=== PATIENT | female | born 1980 | race Asian ===

== ENCOUNTER 2023-10-21 09:27 | Observation (INO) ==
[~2023-10-21 09:27] MED LIST: Naloxone 0.4 mg VIAL 0.4 mg/ml 1 ml VIAL IV PUSH PRN
[2023-10-21] MEDS ORDERED: Scopolamine 1 mg/72hr PATCH ONE (10:41)
[2023-10-21] MEDS ORDERED: oxyCODONE SR 10 mg TAB ONE (10:41)
[2023-10-21] MEDS ORDERED: Ondansetron 4 mg VIAL 2 MG/ML 2 ml VIAL ONE (10:41)
[2023-10-21 10:59] LABS: Hematocrit 36.6 % (35-45); Hemoglobin 12.4 g/dL (11.5-14.3); Mean Corpuscular Hemoglobin 30.7 pg (27-33); Mean Corpuscular Volume 90.4 fL (80-97); Mean Platelet Volume 7.9 fL (7.5-11.2); Platelet Count 338 10^3/uL (150-450); Red Blood Count 4.04 10^6/uL (3.63-4.92); Red Cell Distribution Width 12.5 % (12-17); White Blood Count 2.2 10^3/uL (3.8-11.8)
[2023-10-21] MEDS ORDERED: Naloxone 0.4 mg VIAL 0.4 mg/ml 1 ml VIAL IV PUSH PRN (10:59)
[2023-10-21] MEDS ORDERED: Flumazenil 0.5 mg/5 ml 0.1 MG/ML 5 ml VIAL IV PRN (10:59)
[2023-10-21 11:07] LABS: ABS Neutrophils 0.5 10^3/uL (1.5-7.6)
[2023-10-21 11:12] LABS: Activated Partial Thrombo Time 31.5 seconds (26.0-38.0); INR 0.86 (0.83-1.13)
[2023-10-21] MEDS ORDERED: Lidocaine 1% VIAL 10 MG/ML 30 ML VIAL ONE (11:17)
[2023-10-21] MEDS ORDERED: Heparin 2 UNITS/ML IVPREMIX 3,000 UNIT/1,500 ML BAG IV ONE (11:18)
[2023-10-21] MEDS ORDERED: nitroGLYCERIN DRIP 25,000 MCG/250 ML BTL ONE (11:18)
[2023-10-21] MEDS ORDERED: Iohexol 350 (CONTRAST) 100 ML PAK IV ONE ×2 (11:18→12:39)
[2023-10-21] MEDS ORDERED: Midazolam 5 mg/5 ml VIAL 1 mg/ml 5 ml VIAL (5 mg) ONE (11:22)
[2023-10-21] MEDS ORDERED: fentaNYL 100 mcg/2 ml 50 MCG/ML VIAL ONE (11:22)
[2023-10-21 11:25] LABS: Anion Gap 8 mmol/L (2-16); Blood Urea Nitrogen 12 mg/dL (6-24); CO2 Carbon Dioxide 28 mmol/L (22-32); Calcium 9.5 mg/dL (8.6-10.3); Chloride 103 mmol/L (101-111); Creatinine, Serum 0.65 mg/dL (0.51-0.95); Glucose 93 mg/dL (70-100); Potassium 3.9 mmol/L (3.5-5.0); Sodium 139 mmol/L (135-145)
[2023-10-21 11:27] LABS: ABS Lymphocytes 1.4 10^3/uL (1.0-4.8); ABS Monocytes 0.2 10^3/uL (0.0-0.9); ABS Nucleated RBC 0.01 10^3/ul; Eosinophil % 0.8 %; Nucleated Red Blood Cells % 0.3 %/100WBC (0.0-0.8)
[2023-10-21 11:33] LABS: HCG Pregnancy < 0.60 mIU/mL
[2023-10-21] MEDS ORDERED: HYDROmorphone 0.5 MG/0.5 ML SYRINGE ONE (12:40)
[2023-10-21] MEDS ORDERED: Prochlorperazine 5 mg/ml 2 ml VIAL (10 mg) ONE (13:13)
[2023-10-21] MEDS ORDERED: Atropine 0.1 MG/ML 10 ml SYR (1 mg) ONE (13:16)
[2023-10-21] MEDS ORDERED: Phenylephrine 40 mcg/mL 10mL (400mcg) SYRINGE ONE (13:22)
[2023-10-21] MEDS: HYDROmorphone PCA 20 MG/20 ML PCA.SYRING PCA SCH (13:44)
[2023-10-21] MEDS: Clindamycin 900 MG/D5W BAG IVPB ONE (14:24)
[2023-10-21] MEDS: fentaNYL 100 mcg/2 ml 50 MCG/ML VIAL IV SLOW PU ONE (14:24)
[2023-10-21] MEDS: NS 0.9% 1000 ml BAG 1,000 ML IV SCH (14:25)
[2023-10-21] MEDS: Midazolam 10 mg/10 ml VIAL 1 mg/ml 10 ml VIAL (10 mg) IV SLOW PU ONE (14:25)
[2023-10-21] MEDS: Acetaminophen IV 1 GM/100ML 650 MG/65 ML BAG IV SCH (15:21)
[2023-10-21] MEDS: Clindamycin 600 MG/D5W BAG IV SCH (18:16)
[2023-10-21] MEDS: Ondansetron 4 mg VIAL 2 MG/ML 2 ml VIAL IV SCH (19:22)
[2023-10-22] MEDS ORDERED: Acetaminophen IV 1 GM/100ML 650 MG/65 ML BAG IV SCH (07:00)
[2023-10-22] MEDS ORDERED: HYDROcodone/ACETAMIN 5/325 mg TAB PO PRN (08:27)
[2023-10-22] MEDS: CMCS: Ketorolac 10 mg TAB (NF) PO SCH (09:36)
== END 2023-10-22 11:26 | disposition home or self-care (01) ==
LOC: SSU 09:27 → CHICATH 09:27
PROVIDERS: ADMIT Radiology Diagnostic Radiology; ATTEND Hospitalist
PROC: ANG.UFE (2023-10-21 11:15)